=== PATIENT | male | born 1960 | race Caucasian/White ===

== ENCOUNTER → 2017-04-16 | Outpatient (CLI) | payer BC ==
[~2017-04-16] MED LIST: IOHEXOL 180 MG/ML 10 ML VIAL. ONE; MELA3TAB2 PO; PREG150C PO; methylPREDNISolone ACETATE 40 MG/ML VIAL. ONE; methylPREDNISolone ACETATE 80 MG/ML VIAL. ONE
--- NOTE | 2017-04-16 21:05 | PAIN ---
DATE OF SERVICE: 04/16/2017 INITIAL CONSULTATION FOR PAIN CLINIC CHIEF COMPLAINT: Neck and left upper extremity pain. HISTORY OF PRESENT ILLNESS: This is a 56-year-old male who presents with history of pain in the base of the neck and left upper extremity for about 3 months now. The patient reports no specific injury or action he is aware of, but is gradually increasing, getting worse with time with some weakness in the left upper extremity. The patient is left handed, reports he had a cervical anterior diskectomy and fusion in 2010, did very well. The pain was on his right side at that time, but now is coming into his left base of the shoulder and neck, left arm, mostly in the anterior aspect of the deltoid, biceps and forearm, also in the posterior triceps as well on the left side. The patient reports no symptoms on the right side. The patient reports it is a sharp, stabbing, shooting radiating with numbness, tingling and burning. Changes during the day, worse with activity, worse with repetitive movements of the left upper extremity and once again patient is left handed. So this is happening quite a bit. The patient reports it does not awaken him from sleep at night, does not affect his ability to walk or get around, but driving car with his left hand is becoming more difficult. He has not been dropping any items not had any motor loss, but has significant fatigability of left arm even with simple tasks. The patient reports disability rate from 0-10, 10 being the worst as of 4 with family and home responsibilities, recreation, social activities; 7 with occupation; 0 with sexual behavior and 4 with self care and life support activities. The patient has not had any recent physical therapies or other treatments, but has had these in the past before his first surgery. PAST MEDICAL HISTORY: Significant for cigarette smoking 1 pack a day for 30 years. History of arthritis. PREVIOUS SURGERY: Include left calf biopsy, previous hernia repair, knee scope, hand surgery on the left, vasectomy and revision, and anterior cervical fusion and diskectomy in 2010. CURRENT MEDICATIONS: Include melatonin and Lyrica. ALLERGIES: The patient has no known drug allergies. FAMILY HISTORY: Significant for cancer and high blood pressure. SOCIAL HISTORY: The patient does not drink alcohol. Quit smoking many years ago. He is and lives with his spouse in, [place], [place] and works as a social welfare counselor. REVIEW OF SYSTEMS: The patient's review of systems is positive for those items mentioned in history of present illness. All systems reviewed and otherwise negative. It is complete, full and well documented on the patient's chart. PHYSICAL EXAMINATION: VITAL SIGNS: Today, blood pressure is 120/70, pulse 72, respirations 18, temperature 98.2 degrees Fahrenheit, height 6 feet 3 inches, weight is 157 pounds. GENERAL: The patient is awake, alert, oriented, appropriate, very pleasant demeanor. HEENT: Shows normocephalic, atraumatic. Extraocular movements are intact and symmetrical. Oral cavity, mucous membranes are moist and pink. Dentition is intact. NECK: Shows anterior throat supple without palpable lymphadenopathy noted. Swallow reflex is symmetrical. CHEST: Shows normal on inspection. Breath sounds clear to auscultation bilaterally. HEART: Shows S1 and S2 clear. ABDOMEN: Soft, nontender, nondistended. No palpable organomegaly. No rebound or guarding demonstrated. BACK: Shows spine grossly in the midline. Normal appearing thoracic kyphosis, cervical lordotic curvature and lumbar lordotic curvature. Cervical paraspinous muscle shows symmetrical on inspection. With palpation hows some very mild tenderness in the inferior aspect of the cervical paraspinous muscles, but only diffusely without atrophy, hypertrophy. The patient has full rotational motion of cervical spine, both laterally as well as extension and flexion, greater than 45 degrees laterally, close to 90 degrees right and left as well as full extension and full forward flexion without pain reported. Upper extremity showed deep tendon reflexes at 2+ in the biceps and triceps tendons. Motor exam is strong with 5/5 dx board operator strength, biceps and triceps flexion and symmetrical. Peripheral pulses are 2+ in radial distribution. No peripheral edema is noted. No clubbing or cyanosis. Upper extremities are warm and dry to touch, equal in color and appearance. Shoulder shrug is strong and intact without loss of strength on resistance. With abduction of shoulders, he is able to perform this without difficulty with resistance at 90 degrees on the left. Does show some pain and reports some pain in the base of the neck and left shoulder radiating into the anterior biceps, but no loss of strength on resistance. This is true with shoulder shrug as well with some pain radiating in the same distribution, but without loss of strength on resistance. Right side shows no pain. IMPRESSION: 1. This is a 56-year-old male with about 3 months history of increasing pain in the base of the neck, left upper extremity in a radicular fashion. 2. MRI scan of cervical spine showing evidence of prior diskectomy at C5-C6 and C6-C7 and C4-C5 shows broad-based central and left paracentral disk herniation with mild to moderate spinal canal stenosis and left lateral recess stenosis. 3. History of arthritis. PLAN: Options were discussed with the patient including conservative medical management, physical therapy, interventional technique. He would like to pursue interventional techniques. We discussed a cervical epidural steroid injection using description as well as anatomical models to describe the procedure. Risks were then discussed including, but not limited to bleeding, infection, possibility of epidural hematoma, subsequent neurologic compromise, dural puncture, headaches, spinal cord and/or nerve damage, side effects of steroid medication and poor results regarding pain control. The patient understands and wishes to proceed. The patient will return to clinic in approximately 2 weeks for followup, was counseled on return appointment, activity level and side effects to be aware of. DIAGNOSES: Cervical radiculopathy with cervical herniated disk and post-cervical laminectomy syndrome. PROCEDURE: Cervical epidural steroid injection in translaminar approach at the C5-C6 level using C-arm fluoroscopic guidance under sterile prep and drape using local anesthetic. MEDICATION INJECTED: A total of 120 mg Depo-Medrol plus 5 mL preservative free normal saline and 2 mL of Isovue for contrast. CONDITION AT DISCHARGE: Stable. The patient tolerated procedure well, had no complications. BALAJI ALAN MD DR: HANNAH/amina JOB#: [id number] / [id number]
== END | disposition home or self-care (01) ==
LOC: PNCL 10:03
PROVIDERS: ATTEND Anesthesiology
DX: M50.123 Cervical disc disorder at C6-C7 level with radiculopathy (principal); M96.1 Postlaminectomy syndrome, not elsewhere classified; F17.200 Nicotine dependence, unspecified, uncomplicated; M19.90 Unspecified osteoarthritis, unspecified site
CPT/HCPCS: 62321; J1030; J1040

== ENCOUNTER → 2017-04-30 | Outpatient (CLI) | payer BC ==
--- NOTE | 2017-04-30 10:00 | PAIN ---
DATE OF SERVICE: 04/30/2017 PROGRESS NOTE FOR PAIN CLINIC DIAGNOSES: Cervical radiculopathy with cervical herniated disk and cervical post-laminectomy syndrome. HISTORY OF PRESENT ILLNESS: The patient is a 56-year-old male who returns for followup status post cervical epidural steroid injection x 1. The patient reports approximately 3 days of about 75% improvement, but the pain returned after the injection in the base of the neck and left upper extremity fairly quickly back to baseline. The patient reports it is an 8 on a scale of 10 at its worst, is currently at 6 on a scale of 10, and average is about 7. The patient reports pain in his left arm and shoulder as well as the base of the neck is tingling, burning, sharp, shooting radiating becoming more constant also with some myofascial tenderness in the upper trapezius on the left side as well. The patient reports it does not awaken him from sleep at night. He is sleeping well through the night. He usually sleeps on his back or right side. The patient reports it is a burning sensation in the shoulders as well. No new motor or sensory deficits or other complaints. PHYSICAL EXAMINATION: VITAL SIGNS: The patient's blood pressure is 146/92, pulse ____, respirations 18, temperature 97.7 degrees Fahrenheit. Height is 6 feet 3 inches, weight 160 pounds. GENERAL: The patient is awake, alert, oriented, appropriate, very pleasant demeanor. HEENT: Head shows normocephalic, atraumatic. Extraocular movements are intact and symmetrical. The patient wears eye glasses. Oral cavity, mucous membranes are moist and pink. NECK: Shows anterior throat supple without palpable lymphadenopathy noted. Swallow reflex is symmetrical. Well healed surgical scars noted. CHEST: Shows normal with inspection. Breath sounds clear to auscultation bilaterally. HEART: Shows S1 and S2 clear. No murmurs auscultated. ABDOMEN: Soft, nontender, nondistended. BACK: Shows spine grossly in the midline. Cervical paraspinous musculature shows some moderate tenderness with palpation in the inferior aspect of the left low cervical paraspinous region as well as superior medial trapezius on the left side, which is firm and diffusely tender with palpation as well, but the right is not tender with palpation. EXTREMITIES: Upper extremities show deep tendon reflexes 2+ in the biceps and triceps tendons. Motor exam is 5/5 with casting and curing operator strength, biceps and triceps flexion and equal. Peripheral pulses are 2+ in the radial distribution bilaterally. Options were discussed with the patient and the patient's old chart was reviewed as his current medication regimen updated. Current review of systems updated today as well. We will proceed with a second cervical epidural steroid injection today with fluoroscopic guidance. Risks were again discussed including, but not limited to, bleeding, infection, possibility of epidural hematoma and subsequent neurologic compromise, dural puncture, headaches, spinal cord and/or nerve damage, side effects of steroid medication and poor results regarding pain control. The patient understands and wishes to proceed. The patient will return to clinic in approximately 2 weeks for followup. He was counseled on return appointment, activity level and side effects to be aware of. DIAGNOSES: Cervical radiculopathy with cervical post-laminectomy syndrome with cervical herniated disk. PROCEDURE: Cervical epidural steroid injection in translaminar approach at C6-C7 level using C-arm fluoroscopic guidance under sterile prep and drape using local anesthetic. MEDICATION INJECTED: A total of 120 mg Depo-Medrol plus 5 mL preservative-free normal saline and 2 mL of Isovue for contrast. CONDITION AT DISCHARGE: Stable. The patient tolerated the procedure well, had no complications. BALAJI ALAN MD DR: HANNAH/amina JOB#: [id number] / [id number]
== END | disposition home or self-care (01) ==
LOC: PNCL 08:50
PROVIDERS: ATTEND Anesthesiology
DX: M50.123 Cervical disc disorder at C6-C7 level with radiculopathy (principal); M96.1 Postlaminectomy syndrome, not elsewhere classified
CPT/HCPCS: 62321; J1030; J1040

== ENCOUNTER → 2017-05-14 | Outpatient (CLI) | payer BC ==
--- NOTE | 2017-05-14 14:09 | PN ---
DATE: 05/14/2017 DATE OF SERVICE: 05/14/2017 DIAGNOSES: Cervical radiculopathy with cervical herniated disk and post-cervical laminectomy syndrome. HISTORY OF PRESENT ILLNESS: The patient is a 56-year-old male who returns for followup status post cervical epidural steroid injection x2. The patient reports approximately 75% improvement. The patient reports the pain is still decreased and the shot is still helping, but is still having some tingling in the left hand and arm. The patient reports it is a 6 on a scale of 10 at its worst, is a 5 at its least, and an average of 5/10. The patient reports tingling in the left arm and hand as it was previously, but not to the same extent, still significant however, the patient reports no loss of motor function. No new changes. PHYSICAL EXAMINATION: VITAL SIGNS: The patient's blood pressure 120/77, pulse 80, respirations 16, temperature 98.0 degrees Fahrenheit, weight is 153 pounds. GENERAL: The patient is awake, alert, oriented, appropriate, very pleasant demeanor. HEENT: Head shows normocephalic, atraumatic. Extraocular movements are intact and symmetrical. Oral cavity, mucous membranes are moist and pink. Dentition is intact. NECK: Shows anterior throat supple. CHEST: Shows normal on inspection. Breath sounds are clear bilaterally. HEART: Shows S1 and S2 clear. ABDOMEN: Soft, nontender, nondistended. BACK: The patient's back shows spine grossly midline. Cervical paraspinous musculature shows some mild tenderness with palpation only in the inferior aspect, but it is symmetrical. ____ shows full rotational motion of the cervical spine without significant difficulty including extension and flexion, right and left lateral rotation. EXTREMITIES: Upper extremities showed deep tendon reflexes at 2+ in the biceps and triceps tendons. Motor exam is strong with storm sash maker strength rated at 5/5 and equal. Peripheral pulses are 2+ radial distribution. Options were discussed with the patient. The patient's old chart was reviewed and his current medication regimen updated. Current review of systems updated today as well. We will proceed with a third cervical epidural steroid injection with fluoroscopic guidance. Risks were again discussed including, but not limited to bleeding, infection, possibility of epidural hematoma, subsequent neurologic compromise, dural puncture, headaches, spinal cord and/or nerve damage, side effects of steroid medication and poor results regarding pain control. The patient understands and wishes to proceed. The patient will return to clinic in approximately 2 weeks for followup, was counseled on return appointment, activity level and side effects to be aware of. DIAGNOSIS: Cervical radiculopathy with cervical herniated disk and post-cervical laminectomy syndrome. PROCEDURE: Cervical epidural steroid injection in translaminar approach at C6-C7 level using C-arm fluoroscopic guidance under sterile prep and drape, using local anesthetic. Medication injected a total of 120 mg Depo-Medrol plus 5 mL of preservative-free normal saline and 2 mL Isovue contrast. CONDITION AT DISCHARGE: Stable. The patient tolerated procedure well, had no complications. BALAJI ALAN MD DR: HANNAH/amina JOB#: [id number] / [id number]
== END | disposition home or self-care (01) ==
LOC: PNCL 09:03
PROVIDERS: ATTEND Anesthesiology
DX: M50.123 Cervical disc disorder at C6-C7 level with radiculopathy (principal); M96.1 Postlaminectomy syndrome, not elsewhere classified
CPT/HCPCS: 62321; J1030; J1040

== ENCOUNTER → 2017-08-03 | Outpatient (CLI) | payer BC ==
[~2017-08-03] MED LIST changes: +DOCU-109 PO; +HYDR-2762 PO; +IBUP200C9 PO; -IOHEXOL 180 MG/ML 10 ML VIAL. ONE; +METH750T2 PO; -methylPREDNISolone ACETATE 40 MG/ML VIAL. ONE; -methylPREDNISolone ACETATE 80 MG/ML VIAL. ONE
[2017-08-03 14:35] LABS: BASO # 0.1 x10^3/uL (0.0-0.2); BASO % 1 % (0-3); EOS % 2 % (0-3); HEMATOCRIT 41.7 % (39.0-53.0); HEMOGLOBIN 13.9 g/dL (13.0-17.5); LYMPH # 2.1 x10^3/uL (1.0-4.8); LYMPH % 29 % (24-48); MEAN CORPUSCULAR HEMOGLOBIN 34 pg (25-35); MEAN CORPUSCULAR HGB CONC 33 g/dL (31-37); MEAN CORPUSCULAR VOLUME 101 fL (79-100); MONO % 10 % (0-9); NEUT % 59 % (31-73); PLATELET COUNT 234 x10^3/uL (140-400); RED BLOOD COUNT 4.12 x10^6/uL (4.30-5.70); RED CELL DISTRIBUTION WIDTH 13.7 % (11.5-14.5); WHITE BLOOD COUNT 7.2 x10^3/uL (4.0-11.0)
[2017-08-03 15:05] LABS: ALBUMIN 4.1 g/dL (3.4-5.0); ALBUMIN/GLOBULIN RATIO 1.2 (1.0-1.7); CALCIUM 9.2 mg/dL (8.5-10.1); CREATININE 0.7 mg/dL (0.7-1.3); GFR 117.1; POTASSIUM 3.8 mmol/L (3.5-5.1); TOTAL BILIRUBIN 0.3 mg/dL (0.2-1.0); TOTAL PROTEIN 7.5 g/dL (6.4-8.2)
== END | disposition home or self-care (01) ==
LOC: SURGPAT 14:00
PROVIDERS: ATTEND Neurological Surgery
DX: Z01.818 Encounter for other preprocedural examination (principal)
CPT/HCPCS: 36415; 80053; 85025; 87641

== ENCOUNTER 2017-08-12 06:40 | Observation (INO) | payer BC ==
--- NOTE | 2017-08-11 15:46 | PREOP HP ---
DATE OF SERVICE: 08/12/2017 HISTORY OF PRESENT ILLNESS: The patient is a pleasant 57-year-old who underwent 3 lumbar epidural steroid injections and said he did gain some temporary relief from his left shoulder and left upper arm pain. His last injection was about 6 weeks ago. He says since then, his symptoms have slowly returned. He notes a tingling sensation in his left wrist and forearm. He relates that he tried Lyrica, but did not feel that it helped. He has been through physical therapy as well as epidural steroid injections. PAST MEDICAL HISTORY: Anemia, COPD, head/neck injury, kidney stones. PAST SURGICAL HISTORY: Biopsy of his left calf in 1963; hernia undescended in 1972; a left hand surgery in 1976, 1981 and 1982; knee scope in 1996; vasectomy in 1996; vasectomy reversal in 2000 and ACDF 2010. FAMILY HISTORY: Alzheimer's, cancer, hypertension, spine problems. SOCIAL HISTORY: [employer]. Single. Exercises daily. Denies smoking. Quit smoking this year. Quit drinking this year. Drinks coffee and tea. ALLERGIES: No known drug allergies. CURRENT MEDICATIONS: None. REVIEW OF SYSTEMS: A 12-point review of systems was obtained and is noncontributory except that mentioned above. PHYSICAL EXAMINATION: NEUROSURGERY EXAMINATION: GENERAL APPEARANCE: Alert, pleasant, in no acute distress. HEENT: Normocephalic and atraumatic. NECK AND THYROID: Klao-rx-mitkfzjw tenderness with palpation of posterior cervical region, well healed incision. SKIN: Warm and dry. MUSCULOSKELETAL: Cervical paraspinal muscle bulk is normal, restricted range of motion of the cervical spine. Normal range of motion of the upper extremities bilaterally. EXTREMITIES: No clubbing, cyanosis or edema. NEUROLOGIC: Alert and oriented x 3, normal recent memory. Strength 5/5 in bilateral upper and lower extremities. Sensory was intact to light touch in the upper and lower extremities; however, reflexes were trace and symmetric in the upper and lower extremities bilaterally, normal gait. IMAGING: Reviewed. I reviewed a cervical MRI scan. On that study at C4-C5 on the left, there is severe lateral recess and foraminal narrowing. At C5-C6 and C6-C7, which are the previously operated levels, there is more mild neural foraminal narrowing. At C7 through T1, there is mqrx-sw-[id number] foraminal narrowing. ASSESSMENT: 1. Radiculopathy, cervical region. 2. Spinal stenosis, cervical region. PLAN: I feel comfortable in saying the problem at C4-C5 are responsible for significant portion of his pain. It is difficult to describe the tingling sensations in his forearm and hand and his C4-C5 region, however. I feel it would be too much surgery to operate at both C4-C5 and C7-T1 at the same time posteriorly. At this point, my recommendation would be to operate C4-C5 now and decompress the most severe portion of the problem and see how he does with that. I did discuss this with him in detail including the rationale, technique, risks, and expected postoperative course. He would like to proceed. We will make the arrangements. JAIR RUBIO MD DR: TAMELA/amina JOB#: [id number] / [id number]
[2017-08-12] VITALS (10 sets, daily range): BP systolic 96–129; BP diastolic 48–70
[~2017-08-12] VITALS: Ht 190.5 cm; Wt 70.8 kg
[~2017-08-12 06:40] MED LIST changes: +BACITRACIN 50,000 UNIT in IV NORMAL SALINE 1000ML BAG 1,000 ML IRR ONE; -DOCU-109 PO; -HYDR-2762 PO; -METH750T2 PO
[2017-08-12] MEDS ORDERED: DEXAMETHASONE SOD PHOS 20 MG/5 ML VIAL. ONE (06:48)
[2017-08-12] MEDS ORDERED: ONDANSETRON PF 4 MG/2 ML VIAL. ONE (06:48)
[2017-08-12] MEDS ORDERED: PROPOFOL 20 ML IV ONE (06:48)
[2017-08-12] MEDS ORDERED: LIDOCAINE 2% PF Vial for OR 5 ML VIAL. ONE (06:48)
[2017-08-12] MEDS ORDERED: ROCURONIUM 50 MG/5 ML VIAL. ONE (06:48)
[2017-08-12] MEDS ORDERED: HYDROmorphone 2 MG/ML VIAL IV PRN (07:00)
[2017-08-12] MEDS ORDERED: ONDANSETRON PF 4 MG/2 ML VIAL. IV PRN ×2 (07:00→12:15)
[2017-08-12] MEDS ORDERED: LIDOCAINE 1% PF 2 ML VIAL. ID PRN (07:00)
[2017-08-12] MEDS ORDERED: fentaNYL PF VIAL 100 MCG/2 ML VIAL IV PRN ×2 (07:00→12:15)
[2017-08-12] MEDS: IV RINGERS,LACTATED 1000ML 1,000 ML IV SCH ×2 (07:18→12:31)
[2017-08-12] MEDS ORDERED: BUPIVAC MPF-EPI 0.5%-1:200000 30 ML VIAL. ONE (07:36)
[2017-08-12] MEDS ORDERED: GELATIN SPONGE SIZE 100. ONE (07:36)
[2017-08-12] MEDS ORDERED: THROMBIN TOPICAL 20,000 UNIT SPRAY.SYRN KIT TP ONE (07:36)
[2017-08-12] MEDS ORDERED: fentaNYL PF VIAL 100 MCG/2 ML VIAL ONE (08:10)
[2017-08-12] MEDS ORDERED: PHENYLEPHRINE in 0.9% NACL PF 1 MG/10 ML DISP.SYRIN. IV ONE (08:15)
[2017-08-12] MEDS ORDERED: PROPOFOL 50 ML IV ONE ×2 (08:15→09:23)
[2017-08-12] MEDS ORDERED: REMIFENTANIL 2 MG VIAL. IV ONE (08:19)
[2017-08-12] MEDS ORDERED: NEOSTIGMINE 10 MG/10 ML VIAL. ONE (09:11)
[2017-08-12] MEDS ORDERED: GLYCOPYRROLATE 1 MG/5 ML VIAL. ONE (09:11)
[2017-08-12] MEDS ORDERED: POTASSIUM CL 20MEQ D5-0.45NACL 1,000 ML IV SCH (12:07)
[2017-08-12] MEDS ORDERED: MAGNESIUM HYDROXIDE 2,400 MG/30 ML ORAL.SUSP. PO PRN (12:15)
[2017-08-12] MEDS ORDERED: MAG HYDROX/ALUMINUM HYD/SIMETH 30 ML ORAL.SUSP PO PRN (12:15)
[2017-08-12] MEDS ORDERED: 0.9 % SODIUM CHLORIDE 10 ML DISP.SYRIN. IV PRN (12:15)
[2017-08-12] MEDS ORDERED: CALCIUM CARBONATE 500 MG TAB.CHEW PO PRN (12:15)
[2017-08-12] MEDS ORDERED: HYDROcodone/APAP 7.5/325MG 1 TAB TABLET PO PRN (12:15)
[2017-08-12] MEDS ORDERED: ZOLPIDEM 5 MG TABLET. PO PRN (12:15)
[2017-08-12] MEDS ORDERED: diphenhydrAMINE 50 MG/ML VIAL IV PRN (12:15)
[2017-08-12] MEDS ORDERED: ACETAMINOPHEN 325 MG TABLET. PO PRN (12:15)
[2017-08-12] MEDS ORDERED: diphenhydrAMINE HCL 25 MG CAPSULE PO PRN (12:15)
[2017-08-12] MEDS: fentaNYL PF VIAL 100 MCG/2 ML VIAL IV PRN ×5 (12:31→23:11)
[2017-08-12] MEDS: PROCHLORPERAZINE 10 MG/2 ML VIAL. IV PRN ×2 (12:38→13:00)
[2017-08-12] MEDS: MIDAZOLAM HCL/PF 2 MG/2 ML VIAL. IV PRN ×2 (12:45→13:10)
[2017-08-12] MEDS ORDERED: MIDAZOLAM HCL/PF 2 MG/2 ML VIAL. ONE (12:50)
--- NOTE | 2017-08-12 13:00 | OP ---
DATE OF SURGERY: 08/12/2017 PREOPERATIVE DIAGNOSES: Herniated cervical disc and disc osteophyte complex with left lateral recess and foraminal stenosis C4-C5 and left cervical radiculopathy. POSTOPERATIVE DIAGNOSES: Herniated cervical disc and disc osteophyte complex with left lateral recess and foraminal stenosis C4-C5 and left cervical radiculopathy. OPERATION PERFORMED: Anterior cervical microdiscectomy, C4-C5; anterior cervical interbody fusion, C4-C5; anterior cervical plate, C4-C5. The operation was done with EMG monitoring, fluoroscopy, microscopy, microscopic dissection, somatosensory evoked potentials, NIMS monitoring and motor evoked potentials. SURGEON: Haresh Rubio M.D. FOOD CRITIC: BOAZ Caraballo assisted with the exposure, the microdiscectomy as well as the closure. OPERATIVE INDICATIONS: The patient is a very pleasant 57-year-old man who in the past has undergone an anterior cervical fusion from C5 through C7 and done very well from that. He then developed a left cervical radiculopathy. On imaging studies was seen to have primarily problems at C4-C5 with left lateral recess and foraminal narrowing and I recommended an anterior cervical microdiscectomy and fusion. He did have some left-sided narrowing at C7-T1, but I did not feel that this was the source of his symptoms and recommended an ACDF at C4-C5. I spoke to him about the surgery, the risks I explained and reoperation cases that can be difficult for them to place a plate and gaining exposure, but then I felt that an anterior operation would be the most prudent for him and he understood and he wished to go ahead. DESCRIPTION OF PROCEDURE: Following general endotracheal anesthesia, the patient was positioned supine on the operating room table. The anterior cervical region was prepped and draped in standard fashion. SARMAD hose and AV impulse boots were applied for DVT prophylaxis. The microscope was draped. Fluoroscopy was draped and brought into field. Monitoring was established. Ancef 2 grams was given less than 1 hour prior to initiation of the surgery. Using fluoroscopic guidance, an incision was made from the midline around to the right side in a skin crease. I dissected down skin and subcutaneous tissue. I sharply divided a portion of the platysma, then dissected around the medial aspect of the sternocleidomastoid and carotid artery sheath down the anterior cervical vertebral body. There was considerable scarring anteriorly and I gently retracted the trachea and esophagus laterally while protecting the carotid. I then worked inferiorly so I could visualize the plate and then superiorly, I was able to place the retractors wedge in the longus colli muscles and then distraction pin in C4 and C5 and distracted the disc space and brought in the microscope and the remainder of surgery done with a microscope using microscopic technique. I incised the anterior annulus with #11 blade through the microscope with microscopic technique. I performed a microdiscectomy, scraped cartilaginous endplate and then drilled posteriorly, drilled away the posterior spurring which I trimmed away with a 1 and 2 mm micro Kerrison. I then opened the ligament and there was a focal disc herniation which pass out along the nerve root which I removed and then opened the foramina bilaterally. I scraped cartilaginous endplate and prepared a bed for the fusion cage and I placed a standard cage of 6 mm, which was gently tapped into position. This was packed with allograft bone after I had well prepared the endplates and I assured myself that there was perfect hemostasis at the region of the decompression. Following placement of the cage, then I worked diligently and removed considerable scarring over the anterior bone and drilled away the large anterior bone spur and then, I placed a 20 mm NuVasive plate which I buttressed off against his old plate and I placed four 15 mm screws without difficulty. Fluoroscopic images looked excellent. I irrigated copious antibiotic solution. I then removed the retractor, assured myself of perfect hemostasis in the operative bed and then, I closed the platysma as separate layer, then closed the wound with absorbable sutures and skin was closed with a 4-0 subcuticular stitch. The operation went very well and the patient was awakened uneventfully. I was quite pleased with the surgery. HARESH RUBIO MD DR: TAMELA/amina JOB#: [id number] / [id number]
[2017-08-12] MEDS: MORPHINE SULFATE 2 MG/ML DISP.SYRIN. IV PRN ×2 (13:09→13:25)
[2017-08-12] MEDS ORDERED: ceFAZolin SODIUM 1 GM in IV DEXTROSE 5% 50 ML IV SCH (14:00)
[2017-08-12] MEDS: METHOCARBAMOL 750 MG TABLET PO SCH ×2 (15:48→20:27)
[2017-08-12] MEDS: ceFAZolin SODIUM IV Push 1 GM VIAL. IVP SCH ×2 (15:48→23:03)
[2017-08-12] MEDS: DOCUSATE SODIUM 100 MG CAPSULE. PO SCH (20:27)
[2017-08-13 03:07] VITALS: BP 107/52
[2017-08-13] MEDS: ceFAZolin SODIUM IV Push 1 GM VIAL. IVP SCH (06:18)
[2017-08-13] MEDS: HYDROcodone/APAP 7.5/325MG 1 TAB TABLET PO PRN ×2 (06:22→11:36)
[2017-08-13 06:49] VITALS: BP 119/71
[2017-08-13] MEDS: DOCUSATE SODIUM 100 MG CAPSULE. PO SCH (08:56)
[2017-08-13] MEDS: METHOCARBAMOL 750 MG TABLET PO SCH (08:56)
--- NOTE | 2017-08-13 09:47 | DISCH ---
DISCHARGE INSTRUCTIONS Condition on Discharge Condition on Discharge: Stable Activity After Discharge Activity Instructions for Disc: Activity as tolerated, Avoid exertion Other activity instructions: no driving for a week Bathing Instructions: Shower-keep dressing dry Lifting Instructions after Dis: No heavy lifting, No pulling or pushing, Do not lift >10 pounds Diet after Discharge Additional Diet Restrictions: resume home diet Wound Incision Care Wound/Incision Care: Ice to area for comfort Other wound/incision instructi: may remove dressing in 48 hrs if dry then may shower - no soaking Contacting the after DC Call your doctor for: Concerns you may have Follow-Up Follow up with: Dr. Rubio's nurse in 2 weeks [phone] JAIR RUBIO MD Aug 13, 2017 09:47
[2017-08-13] MEDS ORDERED: HYDR-2762 PO (09:51)
[2017-08-13] MEDS ORDERED: METH750T2 PO (09:51)
[2017-08-13] MEDS ORDERED: DOCU-109 PO (09:51)
[2017-08-13 11:00] VITALS: BP 117/71
--- NOTE | 2017-08-13 16:08 | DS ---
DATE OF DISCHARGE: 08/13/2017 DATE OF SURGERY: 08/12/2017 DISCHARGE DIAGNOSES: Herniated cervical disk and disk osteophyte complex with left lateral recess and foraminal stenosis, C4-C5 and left cervical radiculopathy. OPERATION PERFORMED: Anterior cervical microdiskectomy and fusion C4-C5. HISTORY OF PRESENT ILLNESS: The patient is a pleasant 57-year-old man who in the past has undergone anterior cervical fusion from C5 through C7 and has done very well from that. He then developed a left cervical radiculopathy and on imaging studies was seen to have primary problem at C4-C5 with left lateral recess and foraminal narrowing, and I recommended an anterior cervical microdiskectomy and fusion. I spoke about the risk, the technique as well as the expected postoperative course. He understood and wished to proceed. HOSPITAL COURSE: He was admitted to the floor postoperatively where he did well. He has been up in the room and ambulating and in the halls as well. Physical therapy was initiated and instruction was given to him regarding his activities. His pain is well controlled, and he is in good condition to discharge home. He was given instructions regarding medications, and he will resume his medications per the [facility]AD. DISCHARGE INSTRUCTIONS: He was instructed regarding incision care, activity restrictions and expectations for the next several weeks. He understands to call with any questions or concerns. He will follow up in our office in 2 weeks. JAIR RUBIO MD DR: TOM/amina JOB#: [id number] / [id number]
--- NOTE | 2017-08-13 20:12 | PATHOLOGY ---
PATHOLOGY REPORT * * * * * * * * FINAL DIAGNOSIS: Segments of cartilaginous tissue and bone, cervical disc: - Degenerative changes of cartilaginous tissue. (JPM:alice; 08/13/2017) COMMENT: There is no evidence of an acute inflammatory process or malignancy. REPORT ELECTRONICALLY SIGNED BY: Ilan Jay M.D. DATE/TIME: 08/13/2017 14:41 * * * * * * * * GROSS PATHOLOGY: Received in formalin labeled "Frederic Elmore cervical disc," are multiple segments of luz, rubbery and giritty tissue measuring 2.8 x 1.2 x 0.3 cm in aggregate dimensions, containing small fragments of possible bone. The tissue is filtered and submitted entirely in cassette A1, following decalcification. (TSD; 08/12/2017) INITIAL CPT CODE(S): A; 64313, 02143 Professional services performed [place] [facility] [place] [address] Technical services performed by [facility] at [address] [place] [address], [facility] [address] [address]. SPECIMEN(S) RECEIVED: A.Cervical disc CLINICAL HISTORY: Cervical stenosis, radiculopathy PATIENT: FREDERIC ELMORE /AGE: 906/03/1960 (Age: 57) PATIENT #: [id number] ALT CASE #: SPECIMEN COLLECTION DATE: 08/12/2017 SPECIMEN RECEIVED DATE: 08/12/2017 [facility] - [address] [place] [address] - PHONE: [phone] * * * END OF REPORT * * *
== END 2017-08-13 11:40 | disposition home or self-care (01) ==
LOC: SURG 06:40 → 4 SOUTHEST 14:27
PROVIDERS: ADMIT Neurological Surgery; ATTEND Neurological Surgery
DX: M48.02 Spinal stenosis, cervical region (principal); M54.12 Radiculopathy, cervical region; M25.78 Osteophyte, vertebrae; J44.9 Chronic obstructive pulmonary disease, unspecified; Z82.0 Family history of epilepsy and other diseases of the nervous system; Z82.49 Family history of ischemic heart disease and other diseases of the circulatory system; Z87.442 Personal history of urinary calculi
CPT/HCPCS: 20930; 22551; 22853; 76000; 88304; 88311; 96374; 96375; 96376; 97162; 97530; C1713; G0378; G0379; G8978; G8979; G8980; J0690; J0780; J1100; J2250; J2270; J2370; J2405; J2704; J2710; J3010; J3490; J7030; J7120; J2001